=== PATIENT | female | born 1975 | race Caucasian/White ===

== ENCOUNTER 2017-09-20 04:25 | Emergency (ER) | payer MEDICAID ==
[~2017-09-20] VITALS: Ht 162.6 cm; Wt 78.0 kg
[~2017-09-20 04:25] MED LIST: METF750T
[2017-09-20] MEDS ORDERED: KETOROLAC 30MG/ML VIAL IV STA (05:50)
[2017-09-20] MEDS ORDERED: ONDANSETRON HCL 4MG/2ML VIAL IV STA (05:50)
[2017-09-20] MEDS ORDERED: FAMOTIDINE 20MG/2ML VIAL IV STA (05:50)
[2017-09-20] MEDS ORDERED: VISCOUS LIDOCAINE 2% 15 ML UDC PO STA (06:48)
[2017-09-20] MEDS ORDERED: ACETAMINOPHEN 325MG TABLET PO STA (06:48)
[2017-09-20] MEDS ORDERED: MAGNESIUM/ALUMINUM HYDROXIDE/SIMETHICONE 30ML UDC PO STA (06:48)
[2017-09-20] MEDS ORDERED: SODIUM CHLORIDE 0.9% 1,000 ML IV ONE (06:48)
[2017-09-20 07:32] LABS: BASOPHILS % 0.2 % (0.0-2.0); EOSINOPHILS % 0.8 % (0.0-5.0); HEMATOCRIT. 34.9 % (36.0-48.0); HEMOGLOBIN. 11.7 g/dL (12.0-16.0); LYMPHOCYTES % 9.6 % (20.0-50.0); MEAN CORPUSCULAR HEMOGLOBIN 29.1 pg (28.0-32.0); MEAN PLATELET VOLUME 8.1 fl (7.4-10.4); NEUTROPHILS % 83.4 % (40.0-76.0); PLATELET 279 x1000/uL (130-400); RED BLOOD CELL COUNT 4.01 mill/uL (4.2-5.4); RED CELL DISTRIBUTION WIDTH 13.7 % (11.6-14.6)
[2017-09-20 07:35] LABS: CHLORIDE 107 mEq/L (98-107); PROTHROMBIN TIME 10.9 sec (9.4-11.6)
[2017-09-20 07:47] LABS: CLARITY URINE CLEAR (CLEAR); COLOR URINE DARK YELLOW (YELLOW); KETONES URINE TRACE (NEGATIVE); LEUKOCYTE ESTERASE URINE 1+ (NEGATIVE); NITRITE URINE NEGATIVE (NEGATIVE); OCCULT BLOOD URINE NEGATIVE (NEGATIVE); PROTEIN URINE 1+ (NEGATIVE)
[2017-09-20 09:35] VITALS: BP 126/78
== END 2017-09-20 09:37 | disposition home or self-care (01) ==
LOC: ER 04:25
DX: R10.13 Epigastric pain (principal); N39.0 Urinary tract infection, site not specified; R11.2 Nausea with vomiting, unspecified; R03.0 Elevated blood-pressure reading, without diagnosis of hypertension
CPT/HCPCS: 36415; 80053; 81003; 81025; 82962; 83690; 85025; 85610; 87086; 96361; 96374; 96375; 99285; J1885; J2405; J3490; J7030

== ENCOUNTER 2017-12-06 13:23 | Emergency (ER) | payer MEDICAID ==
[~2017-12-06] VITALS: Ht 165.1 cm; Wt 90.0 kg
[2017-12-06] MEDS ORDERED: KETOROLAC 30MG/ML VIAL IV STA (15:44)
[2017-12-06] MEDS ORDERED: ONDANSETRON HCL 4MG/2ML INJ IV STA (15:44)
[2017-12-06] MEDS ORDERED: SODIUM CHLORIDE 0.9% 1,000 ML IV ONE (15:44)
[2017-12-06 16:49] LABS: BASOPHILS % 0.1 % (0.0-2.0); EOSINOPHILS % 0.9 % (0.0-5.0); HEMATOCRIT. 33.6 % (36.0-48.0); HEMOGLOBIN. 11.3 g/dL (12.0-16.0); LYMPHOCYTES % 7.8 % (20.0-50.0); MEAN CORPUSCULAR HEMOGLOBIN 29.3 pg (28.0-32.0); MEAN CORPUSCULAR VOLUME 86.9 fL (81.0-99.0); MEAN PLATELET VOLUME 7.8 fl (7.4-10.4); MONOCYTES % 5.8 % (2.0-8.0); NEUTROPHILS % 85.4 % (40.0-76.0); PLATELET 283 x1000/uL (130-400); RED BLOOD CELL COUNT 3.87 mill/uL (4.2-5.4)
[2017-12-06 16:54] LABS: CHLORIDE 106 mEq/L (98-107)
[2017-12-06 16:55] LABS: INR 1.1; PROTHROMBIN TIME 10.7 sec (9.1-11.1)
[2017-12-06 17:03] LABS: CLARITY URINE CLEAR (CLEAR); COLOR URINE DARK YELLOW (YELLOW); KETONES URINE 1+ (NEGATIVE); LEUKOCYTE ESTERASE URINE TRACE (NEGATIVE); NITRITE URINE NEGATIVE (NEGATIVE); OCCULT BLOOD URINE NEGATIVE (NEGATIVE); PROTEIN URINE TRACE (NEGATIVE); SPECIFIC GRAVITY URINE 1.039 (1.005-1.030)
[2017-12-06 17:04] LABS: HCG SCREEN NEGATIVE
[2017-12-06 19:13] VITALS: BP 106/73
== END 2017-12-06 19:16 | disposition home or self-care (01) ==
LOC: ER 15:25
DX: R10.9 Unspecified abdominal pain (principal); K76.0 Fatty (change of) liver, not elsewhere classified; I10 Essential (primary) hypertension; E11.9 Type 2 diabetes mellitus without complications; Z90.710 Acquired absence of both cervix and uterus
CPT/HCPCS: 36415; 76705; 80053; 81003; 81025; 83690; 84703; 85025; 85610; 96361; 96374; 96375; 99285; J1885; J2405; J7030; Z7610

== ENCOUNTER 2018-08-07 07:58 | Emergency (ER) | payer MEDICAID ==
[~2018-08-07] VITALS: Ht 157.5 cm; Wt 82.0 kg
[2018-08-07] MEDS ORDERED: SODIUM CHLORIDE 0.9% 1,000 ML IV ONE (09:16)
[2018-08-07] MEDS ORDERED: PROCHLORPERAZINE 10MG/2ML VIAL IV ONE (09:30)
[2018-08-07 09:33] LABS: BASOPHILS % 0.4 % (0.0-2.0); EOSINOPHILS % 0.4 % (0.0-5.0); HEMATOCRIT. 30.7 % (36.0-48.0); HEMOGLOBIN. 10.5 g/dL (12.0-16.0); LYMPHOCYTES % 12.4 % (20.0-50.0); MEAN CORPUSCULAR HEMOGLOBIN 29.3 pg (28.0-32.0); MEAN CORPUSCULAR VOLUME 85.8 fL (81.0-99.0); MEAN PLATELET VOLUME 7.1 fl (7.4-10.4); MONOCYTES % 5.2 % (2.0-8.0); NEUTROPHILS % 81.6 % (40.0-76.0); PLATELET 213 x1000/uL (130-400); RED BLOOD CELL COUNT 3.58 mill/uL (4.2-5.4); RED CELL DISTRIBUTION WIDTH 13.5 % (11.6-14.6)
[2018-08-07 09:38] LABS: CHLORIDE 97 mEq/L (98-107)
[2018-08-07] MEDS ORDERED: KETOROLAC 15MG/ML VIAL IV ONE (10:30)
[2018-08-07 12:06] LABS: CLARITY URINE CLEAR (CLEAR); COLOR URINE YELLOW (YELLOW); KETONES URINE 2+ (NEGATIVE); LEUKOCYTE ESTERASE URINE NEGATIVE (NEGATIVE); NITRITE URINE NEGATIVE (NEGATIVE); OCCULT BLOOD URINE NEGATIVE (NEGATIVE); PROTEIN URINE 1+ (NEGATIVE); SPECIFIC GRAVITY URINE 1.031 (1.005-1.030); UROBILINOGEN URINE 0.2 E.U./dL (0.2-1.0)
[2018-08-07 14:00] VITALS: BP 139/68
== END 2018-08-07 14:08 | disposition home or self-care (01) ==
LOC: ER 07:58
DX: K29.70 Gastritis, unspecified, without bleeding (principal); R51 Headache; E11.9 Type 2 diabetes mellitus without complications; I10 Essential (primary) hypertension; R09.81 Nasal congestion; Z90.710 Acquired absence of both cervix and uterus; Z79.84 Long term (current) use of oral hypoglycemic drugs
CPT/HCPCS: 36415; 80053; 81003; 81025; 85025; 96374; 96375; 99283; J0780; J1885; J7030

== ENCOUNTER 2021-02-18 20:30 | Emergency (ER) | payer SELFPAY ==
[~2021-02-18] VITALS: Ht 157.5 cm; Wt 82.0 kg
[2021-02-18 20:52] VITALS: BP 147/80
[2021-02-18] MEDS ORDERED: HYDROCODONE/ACETAMINOPHEN 5/325MG TABLET PO STA (20:52)
[2021-02-18] MEDS ORDERED: IBUPROFEN 600MG TABLET PO STA (20:52)
[2021-02-18 22:24] LABS: HCG SCREEN NEGATIVE
[2021-02-19] MEDS ORDERED: IBUP-2028 MT (00:34)
[2021-02-19] MEDS ORDERED: HYDR-4001 MT (00:34)
== END 2021-02-19 00:44 | disposition home or self-care (01) ==
LOC: ER 20:30
DX: M79.601 Pain in right arm (principal); M54.2 Cervicalgia; E11.9 Type 2 diabetes mellitus without complications; V49.59XA Passenger injured in collision with other motor vehicles in traffic accident, initial encounter; Y93.89 Activity, other specified; Y92.488 Other paved roadways as the place of occurrence of the external cause
CPT/HCPCS: 73030; 81025; 84703; 99285